=== PATIENT | female | born 1945 | race Caucasian/White ===

== ENCOUNTER 2018-03-15 11:09 | Emergency (ER) | payer MEDICARE ==
[~2018-03-15] VITALS: Ht 165.1 cm; Wt 103.0 kg
[2018-03-15 11:16] VITALS: BP 162/76; PULSE 57; RESP 16; TEMP 97.7; O2SAT 97
[2018-03-15 12:07] VITALS: BP 136/66; PULSE 54; RESP 18; O2SAT 96
--- NOTE | 2018-03-15 12:14 | PD ---
HPI Chief Complaint: General Weakness Time Seen by Provider: 12:13 Travel History International Travel<30 days: No Contact w/Intl Traveler<30days: No Traveled to known affect area: No History of Present Illness HPI Patient over the last 3-4 days she has been developing generalized weakness and fatigue. However over the last day or so it seems to have worsened. Patient cannot really put her finger on how to describe it. However she can clearly state that she does not have any alleviating or aggravating factors. That she does not have any associated factors such as fever, nausea, vomiting, diarrhea, abdominal pain, abdominal cramping, chest pain, headache, visual changes, back or flank pain, sore throat/ringing in the ears/cough, patient also denies any hematuria/dysuria/frequency/urgency. Patient is visiting from [place] and is planning on returning within a week, no local physician States multiple allergies including Tylenol ibuprofen is all hydrocodone ketamine lidocaine lorazepam quetiapine ranitidine sulfa Past medical history significant for hypothyroidism, tonsillectomy, restless leg syndrome, neuropathy, cardiac catheterization in 2014, hypertension, COPD, sleep apnea, GERD, hysterectomy, left knee repair, diabetes, depression, anxiety , fibromyalgia, anemia, breast reduction and left carpal tunnel. PFSH Past Medical History Hx Anticoagulant Therapy: Yes Anemia: Yes Arthritis: Yes Asthma: Yes Autoimmune Disease: Yes (FIBERMYALGIA) Anxiety: Yes Depression: Yes Cardiac Catheterization: Yes (2014) Diabetes: Yes Patient Takes Glucophage: Yes GERD: Yes Hypertension: Yes Neurologic: Yes (RLS, NUEROPATHY) Respiratory: Yes (copd) Immunizations Current: Yes (SHINGLES 2009) Sleep Apnea: Yes Thyroid Disease: Yes Tetanus Vaccination: < 5 Years Influenza Vaccination: Yes ?: Not Past Surgical History Genitourinary Surgery: Yes (BLADDER SUSPENSION) Hysterectomy: Yes Tonsillectomy: Yes Other Surgery: Yes (BREAST REDUCTION, LEFT CARPAL TUNNEL) Social History Alcohol Use: No Tobacco Use: No Substance Use: No Allergies-Medications (Allergen,Severity, Reaction): Coded Allergies: acetaminophen (Verified Allergy, Severe, 03/15/18) hydrocodone (Verified Allergy, Severe, 03/15/18) ketamine (Verified Allergy, Severe, 03/15/18) lorazepam (Verified Allergy, Severe, 03/15/18) aripiprazole (Verified Allergy, Intermediate, 03/15/18) glutethimide (Verified Allergy, Intermediate, Rash, 03/15/18) imipramine (Verified Allergy, Intermediate, Rash, 03/15/18) lidocaine (Verified Allergy, Intermediate, Rash, 03/15/18) quetiapine (Verified Allergy, Intermediate, 03/15/18) makes her feel worse ranitidine (Verified Allergy, Intermediate, Nausea/Vomiting, 03/15/18) sulfamethoxazole (Verified Allergy, Intermediate, Rash, 03/15/18) trimethoprim (Verified Allergy, Intermediate, Rash, 03/15/18) Reported Meds & Prescriptions Reported Meds & Active Scripts Active Reported Azelastine Nasal Mohler (Azelastine HCl) 0.1% Mohler 1 Mohler EACH NARE BID Proair Hfa 8.5 GM Inh (Albuterol Sulfate) 90 Mcg/Act Aer 2 Puff INH Q4-6H PRN 108 mcg/actuation [Nutrilite Joint] 2 Tab PO DAILY Refresh Opth Drops (Polyvinyl Alcohol-Povidone Opth Drops) 1.4-0.6% Drops 1-2 Drop EACH EYE PRN PRN Flintstones Complete (Iron/Minerals/Multivitamins) 60 Mg Tab 1 Tab CHEW DAILY Aspirin Low Dose (Aspirin) 81 Mg Chew 81 Mg CHEW DAILY Tramadol (Tramadol HCl) 50 Mg Tab 50 Mg PO I3LUELOJ@2PM PRN Tramadol (Tramadol HCl) 50 Mg Tab 25 Mg PO DAILY NEB PRN Tramadol (Tramadol HCl) 50 Mg Tab 100 Mg PO DAILY@8PM PRN Xarelto (Rivaroxaban) 20 Mg Tab 20 Mg PO HS Mirapex (Pramipexole Dihydrochloride) 0.5 Mg Tab 0.5 Mg PO HS Vitamin D3 Ultra Strength (Cholecalciferol) 5,000 Unit Cap 50,000 Units PO WEDNESDAY Wellbutrin Xl 24 HR (Bupropion HCl) 150 Mg Tab 150 Mg PO HS Metformin (Metformin HCl) 500 Mg Tab 500 Mg PO DAILY With a meal Isosorbide Mononitrate ER (Isosorbide Mononitrate) 30 Mg Wally 45 Mg PO DAILY Irbesartan 300 Mg Tab 300 Mg PO DAILY Synthroid (Levothyroxine Sodium) 50 Mcg Tab 50 Mcg PO DAILY Gabapentin 800 Mg Tab 800 Mg PO TID Review of Systems General / Constitutional: No: Fever Eyes: No: Visual changes HENT: No: Headaches Cardiovascular: No: Chest Pain or Discomfort Respiratory: No: Shortness of Breath Gastrointestinal: No: Abdominal Pain Genitourinary: No: Dysuria Musculoskeletal: No: Pain Skin: No Rash Neurologic: Positive: Weakness Psychiatric: No: Depression Endocrine: No: Polydipsia Hematologic/Lymphatic: No: Easy Bruising Physical Exam Narrative GENERAL: SKIN: Warm and dry. HEAD: Atraumatic. Normocephalic. EYES: Pupils equal and round. No scleral icterus. No injection or drainage. ENT: No nasal bleeding or discharge. Mucous membranes pink and moist. NECK: Trachea midline. No JVD. CARDIOVASCULAR: Regular rate and rhythm. RESPIRATORY: No accessory muscle use. Clear to auscultation. Breath sounds equal bilaterally. GASTROINTESTINAL: Abdomen soft, non-tender, nondistended. MUSCULOSKELETAL: Extremities without clubbing, cyanosis, or edema. No obvious deformities. NEUROLOGICAL: Awake and alert. No obvious cranial nerve deficits. Motor grossly within normal limits. Five out of 5 muscle strength in the arms and legs. Normal speech. PSYCHIATRIC: Appropriate mood and affect; insight and judgment normal. Data Data Last Documented VS Vital Signs Date Time Temp Pulse Resp B/P (MAP) Pulse Ox O2 Delivery O2 Flow Rate FiO2 03/15/18 15:01 54 18 134/68 (90) 95 Room Air 03/15/18 11:16 97.7 Orders Orders Electrocardiogram (03/15/18 12:15) Complete Blood Count With Diff (03/15/18 12:15) Comprehensive Metabolic Panel (03/15/18 12:15) Creatine Kinase (Cpk) (03/15/18 12:15) Ckmb (Isoenzyme) Profile (03/15/18 12:15) Troponin I (03/15/18 12:15) B-Type Natriuretic Peptide (03/15/18 12:15) Prothrombin Time / Inr (Pt) (03/15/18 12:15) Act Partial Throm Time (Ptt) (03/15/18 12:15) Lipase (03/15/18 12:15) Urinalysis - C+S If Indicated (03/15/18 12:15) Thyroid Stimulating Hormone (03/15/18 12:15) Chest, Single Ap (03/15/18 12:15) Ct Brain W/O Iv Contrast(Rout) (03/15/18 12:15) Iv Access Insert/Monitor (03/15/18 12:15) Ecg Monitoring (03/15/18 12:15) Oximetry (03/15/18 12:15) Drug Screen, Random Urine (03/15/18 12:15) Alcohol (Ethanol) (03/15/18 12:15) Salicylates (Aspirin) (03/15/18 12:15) Tylenol (Acetaminophen) (03/15/18 12:15) Lorazepam Inj (Ativan Inj) (03/15/18 14:15) Labs Laboratory Tests Test 03/15/18 12:43 03/15/18 15:41 White Blood Count 5.4 TH/MM3 Red Blood Count 4.74 MIL/MM3 Hemoglobin 14.2 GM/DL Hematocrit 42.8 % Mean Corpuscular Volume 90.2 FL Mean Corpuscular Hemoglobin 29.9 PG Mean Corpuscular Hemoglobin Concent 33.2 % Red Cell Distribution Width 13.3 % Platelet Count 235 TH/MM3 Mean Platelet Volume 9.8 FL Neutrophils (%) (Auto) 43.4 % Lymphocytes (%) (Auto) 38.6 % Monocytes (%) (Auto) 7.3 % Eosinophils (%) (Auto) 2.3 % Basophils (%) (Auto) 8.4 % Neutrophils # (Auto) 2.3 TH/MM3 Lymphocytes # (Auto) 2.1 TH/MM3 Monocytes # (Auto) 0.4 TH/MM3 Eosinophils # (Auto) 0.1 TH/MM3 Basophils # (Auto) 0.5 TH/MM3 CBC Comment AUTO DIFF Differential Total Cells Counted 100 Neutrophils % (Manual) 48 % Band Neutrophils % 2 % Lymphocytes % 29 % Monocytes % 6 % Eosinophils % 3 % Neutrophils # (Manual) 2.8 TH/MM3 Metamyelocytes 1 % Differential Comment FINAL DIFF MANUAL Atypical Lymphocytes 11 % Platelet Estimate NORMAL Platelet Morphology Comment NORMAL Red Cell Morphology Comment NORMAL Prothrombin Time 9.9 SEC Prothromb Time International Ratio 1.0 RATIO Activated Partial Thromboplast Time 23.0 SEC Blood Urea Nitrogen 25 MG/DL Creatinine 0.83 MG/DL Random Glucose 107 MG/DL Total Protein 7.5 GM/DL Albumin 4.1 GM/DL Calcium Level 9.2 MG/DL Alkaline Phosphatase 87 U/L Aspartate Amino Transf (AST/SGOT) 19 U/L Alanine Aminotransferase (ALT/SGPT) 36 U/L Total Bilirubin 0.4 MG/DL Sodium Level 140 MEQ/L Potassium Level 4.5 MEQ/L Chloride Level 105 MEQ/L Carbon Dioxide Level 26.0 MEQ/L Anion Gap 9 MEQ/L Estimat Glomerular Filtration Rate 67 ML/MIN Total Creatine Kinase 41 U/L Troponin I LESS THAN 0.02 NG/ML B-Type Natriuretic Peptide 15 PG/ML Lipase 190 U/L Thyroid Stimulating Hormone 3rd Gen 0.697 uIU/ML Salicylates Level LESS THAN 1.7 MG/DL Acetaminophen Level LESS THAN 2.0 MCG/ML Ethyl Alcohol Level LESS THAN 3 MG/DL Urine Color YELLOW Urine Turbidity CLEAR Urine pH 6.5 Urine Specific [place] 1.020 Urine Protein NEG mg/dL Urine Glucose (UA) NEG mg/dL Urine Ketones NEG mg/dL Urine Occult Blood NEG Urine Nitrite NEG Urine Bilirubin NEG Urine Urobilinogen 0.2 MG/DL Urine Leukocyte Esterase TRACE Urine RBC 0-3 /hpf Urine WBC 3-5 /hpf Microscopic Urinalysis Comment CULT NOT INDICATED Urine Barbiturates Screen NEG Urine Amphetamines Screen NEG Urine Cocaine Screen NEG Urine Cannabinoids Screen NEG MDM Medical Decision Making Medical Screen Exam Complete: Yes Emergency Medical Condition: Yes Medical Record Reviewed: Yes Interpretation(s) EKG shows a sinus bradycardia 51, with a sinus arrhythmia. No ST elevation NM pattern noted. Normal intervals Differential Diagnosis Hypothyroidism versus anemia versus dehydration versus electrolyte abnormality versus STEMI atypical versus pneumonia versus UTI Narrative Course CBC does not show any evidence of leukocytosis, no anemia, normal platelet count but does show an elevation in atypical lymphocytes Coagulation profile is within normal limits Urinalysis is negative for UTI Tox screen which is essentially negative for Tylenol aspirin alcohol marijuana cocaine amphetamines barbiturates Electrolytes are all within normal limits. Normal kidney liver and pancreatic functions Normal TSH screening test First set of cardiac enzymes negative Chest x-ray read by radiologist as no acute intrathoracic disease Head CT read by radiologist as no acute intracranial pathology, diffuse nonspecific sclerosis involving the frontal bone of unknown significance Diagnosis Primary Impression: Nonspecific generalized weakness Additional Impression: Suspect mononucleosis Patient Instructions: Full Liquid Diet (DC), General Instructions, Mononucleosis (ED) Scripts Ondansetron Odt (Zofran Odt) 4 Mg Tab 4 MG SL Q6HR Y for Nausea/Vomiting, #10 TAB 0 Refills Prov: Trino Qureshi MD 03/15/18 Disposition: 01 DISCHARGE HOME Condition: Stable Trino Qureshi MD Mar 15, 2018 12:14
[2018-03-15] MEDS ORDERED: BUPR150XL PO (12:32)
[2018-03-15] MEDS ORDERED: AZEL1SPR2 EACH NARE (12:32)
[2018-03-15] MEDS ORDERED: REFRDRO EACH EYE (12:32)
[2018-03-15] MEDS ORDERED: ALBUAER3 INH (12:32)
[2018-03-15] MEDS ORDERED: ISOS30TA3 PO (12:32)
[2018-03-15] MEDS ORDERED: FLINT2 CHEW (12:32)
[2018-03-15] MEDS ORDERED: D-3-50003 PO (12:32)
[2018-03-15] MEDS ORDERED: GABA800T PO (12:32)
[2018-03-15] MEDS ORDERED: ASPI81CH6 CHEW (12:32)
[2018-03-15] MEDS ORDERED: XARE20TA PO (12:32)
[2018-03-15] MEDS ORDERED: [UNRECOGNIZED DRUG - OTHER] PO (12:32)
[2018-03-15] MEDS ORDERED: IRBE300T11 PO (12:32)
[2018-03-15] MEDS ORDERED: METF500T PO (12:32)
[2018-03-15] MEDS ORDERED: LEVO.05 PO (12:32)
[2018-03-15] MEDS ORDERED: TRAM50TA PO ×3 (12:32)
[2018-03-15] MEDS ORDERED: MIRA0.5T PO (12:32)
--- NOTE | 2018-03-15 12:37 | RADRPT ---
EXAM DATE: 03/15/2018 12:34 PM EDT AGE/SEX: 72 years / Female INDICATIONS: Short of breath and dizziness. CLINICAL DATA: This is the patient's initial encounter. Patient reports that signs and symptoms have been present for 1 day and indicates a pain score of 0/10. MEDICAL/SURGICAL HISTORY: Asthma. Chronic obstructive pulmonary disease. . Breast reduction. COMPARISON: No prior exams available for comparison. FINDINGS: A single AP view of the chest demonstrates the lungs to be symmetrically aerated without evidence of mass, infiltrate or effusion. The cardiomediastinal contours are unremarkable. Osseous structures a re intact. CONCLUSION: No acute intrathoracic disease. Electronically signed by: Ronaldo Miller MD 03/15/2018 12:36 PM EDT
[2018-03-15 12:52] VITALS: O2SAT 96
[2018-03-15 12:53] VITALS: BP 134/74; PULSE 58; RESP 20; O2SAT 96
[2018-03-15 12:58] LABS: AUTOMATED NEUTROPHIL # 2.3 TH/MM3 (1.8-7.7); BASOPHIL # 0.5 TH/MM3 (0-0.2); BASOPHIL % 8.4 % (0.0-2.0); EOSINOPHIL # 0.1 TH/MM3 (0-0.4); EOSINOPHIL % 2.3 % (0.0-4.0); HEMATOCRIT 42.8 % (35.0-46.0); HEMOGLOBIN 14.2 GM/DL (11.6-15.3); LYMPH % 38.6 % (9.0-44.0); LYMPHOCYTE # 2.1 TH/MM3 (1.0-4.8); MEAN CELL VOLUME 90.2 FL (80.0-100.0); MEAN CORPUSCULAR HEMOGLOBIN 29.9 PG (27.0-34.0); MEAN CORPUSCULAR HGB CONC 33.2 % (32.0-36.0); MEAN PLATELET VOLUME 9.8 FL (7.0-11.0); MONO % 7.3 % (0.0-8.0); MONOCYTE # 0.4 TH/MM3 (0-0.9); NEUT % 43.4 % (16.0-70.0); PLATELET COUNT 235 TH/MM3 (150-450); RED BLOOD COUNT 4.74 MIL/MM3 (4.00-5.30); RED CELL DISTRIBUTION WIDTH 13.3 % (11.6-17.2); WHITE BLOOD COUNT 5.4 TH/MM3 (4.0-11.0)
[2018-03-15 13:14] LABS: PROTHROMBIN TIME - PATIENT 9.9 SEC (9.8-11.6)
[2018-03-15 13:28] LABS: CHLORIDE 105 MEQ/L (98-107); SODIUM (NA) 140 MEQ/L (136-145)
[2018-03-15 13:36] LABS: ALBUMIN 4.1 GM/DL (3.4-5.0); BLOOD UREA NITROGEN 25 MG/DL (7-18); CALCIUM 9.2 MG/DL (8.5-10.1); GLUCOSE,RANDOM 107 MG/DL (74-106)
[2018-03-15 13:39] LABS: ALT (GPT) 36 U/L (10-53); AST (GOT) 19 U/L (15-37); CREATININE 0.83 MG/DL (0.50-1.00); GLOMERULAR FILTRATION RATE 67 ML/MIN (>89); TOTAL BILIRUBIN ADULT 0.4 MG/DL (0.2-1.0); TOTAL PROTEIN 7.5 GM/DL (6.4-8.2)
[2018-03-15 13:40] LABS: ALKALINE PHOSPHATASE 87 U/L (45-117)
[2018-03-15 13:44] LABS: TROPONIN I LESS THAN 0.02 NG/ML (0.02-0.05)
[2018-03-15 13:49] LABS: ATYPICAL LYMPHOCYTES 11 % (0-0); BANDS 2 % (0-6); LYMPHOCYTES 29 % (9-44); METAMYELOCYTES 1 % (0-1); MONOCYTES 6 % (0-8); NEUTROPHIL # MANUAL DIFF 2.8 TH/MM3 (1.8-7.7); POLYS (SEG NEUTROPHILS) 48 % (16-70)
[2018-03-15 14:15] LABS: ACETAMINOPHEN LESS THAN 2.0 MCG/ML (10.0-30.0)
[2018-03-15] MEDS ORDERED: LORazepam 2 MG/ML VIAL IV PUSH ONE (14:15)
[2018-03-15 15:01] VITALS: BP 134/68; PULSE 54; RESP 18; O2SAT 95
--- NOTE | 2018-03-15 15:14 | RADRPT ---
EXAM DATE: 03/15/2018 3:02 PM EDT AGE/SEX: 72 years / Female INDICATIONS: Weak and dizziness. CLINICAL DATA: This is the patient's initial encounter. Patient reports that signs and symptoms have been present for 3 days and indicates a pain score of 0/10. MEDICAL/SURGICAL HISTORY: Hypertension. Diabetes. Hysterectomy. RADIATION DOSE: 55.67 CTDI (mGy) COMPARISON: No prior exams available for comparison. TECHNIQUE: CT of the head without contrast. Using automated exposure control and adjustment of the mA and/or kV according to patient size, radiation dose was kept as low as reasonably achievable to ob tain optimal diagnostic quality images. DICOM format image data is available electronically for revi ew and comparison. FINDINGS: Cerebrum: The ventricles are normal for age. No evidence of midline shift, mass lesion, hemorrhage or acute infarction. No extraaxial fluid collections are seen. Posterior Fossa: The cerebellum and brainstem are intact. The 4th ventricle is midline. The cerebe llopontine angle is unremarkable. Extracranial: The visualized portion of the orbits is intact. Skull: The calvaria is intact. No evidence of skull fracture. There is nonspecific sclerosis involv ing the frontal bone. CONCLUSION: 1. No acute intracranial pathology. 2. Diffuse nonspecific sclerosis involving the frontal bone. Electronically signed by: Ronaldo Miller MD 03/15/2018 3:13 PM EDT
[2018-03-15 15:50] LABS: BILIRUBIN, URINE NEG (NEG); BLOOD, URINE NEG (NEG); GLUCOSE,URINE NEG (NEG); KETONE, URINE NEG (NEG); NITRITE,URINE NEG (NEG); PH, URINE 6.5 (5.0-8.5); URINE COLOR YELLOW (YELLW/STRAW); URINE LEUKOCYTE ESTERASE TRACE (NEG)
[2018-03-15 15:55] LABS: RBC, URINE 0-3 /hpf (0-3)
[2018-03-15] MEDS ORDERED: ZOFR4TAB3 SL (16:09)
[2018-03-15 16:34] VITALS: BP 134/74
--- NOTE | 2018-03-16 14:02 | EKG ---
Date Performed: 03/15/2018 Time Performed: 12:47:10 PTAGE: 72 years EKG: SINUS BRADYCARDIA WITH SINUS ARRHYTHMIA MARKED LEFT AXIS DEVIATION ABNORMAL ECG NO PREVIOUS TRACING DOCTOR: Madi Grant Interpretating Date/Time 03/16/2018 14:01:40
== END 2018-03-15 16:44 | disposition home or self-care (01) ==
LOC: PHED 11:09
DX: R53.1 Weakness (principal); R94.31 Abnormal electrocardiogram [ECG] [EKG]; R00.1 Bradycardia, unspecified; E11.9 Type 2 diabetes mellitus without complications; E03.9 Hypothyroidism, unspecified; I10 Essential (primary) hypertension; J44.9 Chronic obstructive pulmonary disease, unspecified; F32.9 Major depressive disorder, single episode, unspecified; K21.9 Gastro-esophageal reflux disease without esophagitis; M79.7 Fibromyalgia; D64.9 Anemia, unspecified; Z79.01 Long term (current) use of anticoagulants; Z79.899 Other long term (current) drug therapy; Z79.84 Long term (current) use of oral hypoglycemic drugs
CPT/HCPCS: 70450; 71045; 80053; 80307; 81001; 82550; 83690; 83880; 84443; 84484; 85007; 85027; 85610; 85730; 93005; 96374; 99285; J2060